=== PATIENT | male | born 1945 | race Caucasian/White ===

== ENCOUNTER 2019-01-06 15:17 | Inpatient (IN) | payer BC, MEDICARE ==
[~2019-01-06] VITALS: Ht 177.8 cm; Wt 84.8 kg
--- NOTE | 2019-01-06 15:35 | NUR ---
PT PRESENTS TO ED BIBA FROM [facility]. PER EMS PT WAS SCHEDULED TO GET DIALYSIS TODAY BUT PT BP WAS TOO LOW PRIOR TO STARTING DIALYSIS. EMS STS PT HAS BEEN C/O LETHARGY AND WEAKNESS. EMS STS PT GCS WAS 14 IN ROUTE TO HOSPITAL AND PT COULD NOT STATE WHAT YEAR IT WAS. EMS STS PT BP WAS IN 60'S SYSTOLIC AT [facility], AND WAS IN HIGH 80'S/LOW 90'S AFTER 500ML NS BOLUS. EMS STS PT BLOOD GLUCOSE WAS 87 IN ROUTE AND PT LAST DIALYSIS WAS ON . PT AAX04 UPON ARRIVAL, RESP E/U, ON FULL CM, WILL CONTINUE TO MONITOR.
--- NOTE | 2019-01-06 15:40 | NUR ---
PT ARRIVED TO ED WITH RT SIDED FEMORAL CENTRAL LINE, PEG TUBE IN MID ABDOMEN, DIALYSIS CATHETER TO RT SIDE OF CHEST, AND TRACHEOTOMY. PER TRACHEOTOMY WAS DONE 6 WEEKS AGO.
[2019-01-06 16:28] LABS: BASOPHIL % 0.5 % (0-2); PLATELET COUNT 273 x10^3mcL (130-400)
[2019-01-06 16:29] LABS: RED CELL DISTRIBUTION WIDTH 15.4 % (11.5-14.5)
[2019-01-06 16:51] LABS: ALKALINE PHOSPHATASE 106 U/L (46-116); ALT/SGPT 22 U/L (16-63); AST/SGOT 32 U/L (15-37); BILIRUBIN TOTAL 0.5 mg/dL (0.20-1.00); CALCIUM 8.5 mg/dL (8.5-10.1); CARBON DIOXIDE 26.5 mmol/L (21-32); CHLORIDE SERUM 98 mmol/L (98-107); GLUCOSE SERUM 106 mg/dL (74-106); POTASSIUM SERUM 3.5 mmol/L (3.5-5.1); SODIUM SERUM 135 mmol/L (136-145); TOTAL PROTEIN, SERUM 7.3 g/dL (6.4-8.2)
[2019-01-06 17:04] LABS: ALBUMIN 2.5 g/dL (3.4-5.0); CREATININE SERUM 4.7 mg/dL (0.7-1.3)
--- NOTE | 2019-01-06 17:22 | NUR ---
PER DR. FERRARI PT OK TO TAKE FOR CT SCAN. PT OFF FLOOR TAKEN FOR CT.
--- NOTE | 2019-01-06 18:00 | NUR ---
PT AT BEDSIDE
[2019-01-06] MEDS ORDERED: ASPIR 8181 MG PO (19:18)
[2019-01-06] MEDS ORDERED: LIPI10 PO (19:19)
[2019-01-06] MEDS ORDERED: LANSOPRAZOLE30 M2 PO (19:19)
[2019-01-06] MEDS ORDERED: LAXATIVE5 M1 PO (19:19)
[2019-01-06] MEDS ORDERED: MIDODRINE HCL10 MG PO (19:19)
[2019-01-06] MEDS ORDERED: DOCUSATE100 M1 PO (19:26)
[2019-01-06] MEDS ORDERED: AUTOJECT 21 EACH SQ (19:27)
[2019-01-06] MEDS ORDERED: COMINH (19:27)
[2019-01-06] MEDS ORDERED: ONDANSETRON4 M3 PO (19:27)
[2019-01-06] MEDS ORDERED: NEU300 PO (19:27)
--- NOTE | 2019-01-06 19:27 | NUR ---
REPORT GIVEN TO SARA GRAVES IN ICU TO ASSUME CARE OF PT.
[2019-01-06 19:40] LABS: MAGNESIUM 2.4 mg/dL (1.8-2.4); PHOSPHOROUS 3.6 mg/dL (2.5-4.9)
[2019-01-06 19:42] LABS: CHOLESTEROL/HDL RATIO 5.4
[2019-01-06 19:46] LABS: T3 TOTAL 0.73 ng/mL
[2019-01-06 19:47] LABS: FREE T4 1.27 ng/dL (0.76-1.46); FREE THYROXINE INDEX 1.9 ug/dL (1.4-4.5); T4(THYROXINE) 5.2 ug/dL (4.7-13.3)
[2019-01-06 20:59] VITALS: BP 95/58
--- NOTE | 2019-01-07 01:34 | NUR ---
LAB CALLED WITH CRITICAL TROPONIN OF 0.219
[2019-01-07 05:14] LABS: BASOPHIL % 0.6 % (0-2); PLATELET COUNT 188 x10^3mcL (130-400); RED CELL DISTRIBUTION WIDTH 15.8 % (11.5-14.5)
[2019-01-07 05:19] LABS: CALCIUM 7.8 mg/dL (8.5-10.1); CARBON DIOXIDE 23.4 mmol/L (21-32); CHLORIDE SERUM 105 mmol/L (98-107); GLUCOSE SERUM 82 mg/dL (74-106); MAGNESIUM 2.2 mg/dL (1.8-2.4); POTASSIUM SERUM 3.6 mmol/L (3.5-5.1); SODIUM SERUM 140 mmol/L (136-145)
[2019-01-07 05:24] LABS: CREATININE SERUM 4.7 mg/dL (0.7-1.3)
--- NOTE | 2019-01-07 07:04 | NUR ---
PT CARE AND REPORT TRANSFERRED TO TIMMY WITH ALL QUESTIONS AND CONCERNS ANSWERED
--- NOTE | 2019-01-07 07:25 | NUR ---
PATIENT IN BED, BED TO THE LOWEST POSITION. PATIENT IS ON 2 L NASAL CANNULA. PATIENT IS BREATHING ADEQUATELY AND THERE ARE NO SIGN OF RESPIRATORY DISTRESS. PATIENT HAS UPPER L SIDED MAGNENT NOTED FOR PACEMAKER. R SIDE ACCESS FOR DIALYSIS. PEG TUBE NOTED TO LUQ. R FEMORAL CENTRAL LINE, INTACT AND PATENT. LLE SURGICAL BKA. R HEEL AND TOE SCABS NOTED AND OPEN WOUND. BOOT APPLIED AND HEEL OFF LOADED WITH PILLOW. PATIENT STABLE AT THIS TIME, WILL CONTINUE TO MONITOR.
[2019-01-07 08:06] VITALS: BP 87/49
--- NOTE | 2019-01-07 09:50 | NUR ---
ECHOCARDIOGRAM PENDING-PACEMAKER BEING CHARGED
--- NOTE | 2019-01-07 11:08 | NUR ---
PATIENT STATES THAT HE IS UNCOMFORTABLE AT THIS TIME AND WOULD LIKE TO SIT UP IN BED. PATIENT ASSISTED TO SIT UP AND BED. PATIENT STABLE. WILL CONTINUE TO MONITOR.
[2019-01-07 11:09] VITALS: BP 84/52
--- NOTE | 2019-01-07 12:03 | NUR ---
DR. BAILEY IN UNIT AND MADE AWARE PT'S MAP MAINTAINING BELOW 60. VERBAL ORDER RECIEVED FOR NS BOLUS 500 ML X 1. ORDERS REPEATED AND CONFIRMED. PRIMARY RN MADE AWARE.
--- NOTE | 2019-01-07 13:14 | NUR ---
DR. JAMES INFORMED OF PATIENTS BLOOD PRESSURE TRENDING DOWN, AND CURRENTLY 82/37 WITH A MAP OF 56. PER DR. JAMES, HE WILL NOTIFY DR. BAILEY AT THIS TIME TO SEE WHAT HE WANTS TO DO. NO NEW ORDERS AT THIS TIME. WILL AWAIT CALL BACK.
--- NOTE | 2019-01-07 13:37 | NUR ---
SECOND NS 500 ML BOLUS INITIATED AT THIS TIME. NIBP 79/46 MAP 56. WILL CONT TO MONITOR.
[2019-01-07 15:24] VITALS: BP 90/57
--- NOTE | 2019-01-07 18:05 | NUR ---
PATIENT ASSISTED UP IN BED, UPON REQUEST. PATIENT STABLE, AND STATES NO PAIN. NO DISTRESS NOTED. BED TO THE LOWEST POSITION. WILL CONTINUE TO MONITOR.
--- NOTE | 2019-01-07 19:13 | NUR ---
REPORT GIVEN TO SARA BETANCUR ALL QUESTIONS ANSWERED.
[2019-01-07 19:30] VITALS: BP 90/48
--- NOTE | 2019-01-07 19:30 | NUR ---
REC'D REPORT FROM TIMMY RUIZ TO ASSUME CARE. PT A/O X4, SLOW TO RESPOND. SPEECH CLEAR AND APPROPRIATE. PERRLA NOTED. EENT FREE OF DISCHARGE. RESPS E/U ON O2 2LPM VIA NC. CHEST RISE EQUAL AND SYMMETRICAL. LUNG SOUNDS DIMINISHED. ROLL FORMING MACHINE OPERATOR IN PLACE SHOWING ST. BP 90/48 MAP 63, HR 100. CHEST WALL STABLE. DENIES ANY CP, SYNCOPE, OR DIZZINESS. PACEMAKER TO L UPPER CHEST WITH MAGNET IN PLACE FROM ED. PULSES PALPABLE BUT WEAK. CAP REFILL < 3 SECS. RLE PITTING 1+ PITTING EDEMA R FEMORAL CENTRAL LINE INTACT AND PATENT, DSG CDI. ABD ROUND, SOFT, NONTENDER TO TOUCH. BOWEL SOUNDS ACTIVE. DENIES ANY N/V, PT WITH EPISODE OF SMALL AMT OF LOOSE STOOL. RENAL DIET DURING DAY. WILL INITIATE TF PER MD ORDER. PT ANURIC ON HD. R UPPER CHEST SUSAN CATH INTACT AND SECURED, DSG CDI. PULSES PALPABLE BUT WEAK. CAP REFILL < 3 SECS. RLE PITTING 1+ PITTING EDEMA R FEMORAL CENTRAL LINE INTACT AND PATENT, DSG CDI. GEN WEAKNESS. TURNED AND REPOSITIONED Q2H FOR PRESSURE RELIEF. ISOGEL MATTRESS IN PLACE. HEEL PROTECTOR TO RLE IN PLACE. INSTRUCTED TO CALL FOR ANY ASSISTANCE. WILL CONTINUE TO MONITOR.
--- NOTE | 2019-01-07 20:00 | NUR ---
TF NEPRO INITIATED AT 10ML/HR.
--- NOTE | 2019-01-07 20:30 | NUR ---
SMALL AMT OF LOOSE STOOL NOTED. FULL BED BATH PROVIDED AT THIS TIME WITH CHG WIPES. ALL LINENS CHANGED. PT REPOSITIONED TO COMFORT.
--- NOTE | 2019-01-07 22:00 | NUR ---
HEATING PLACED ON RLE.
[2019-01-07 23:16] VITALS: BP 89/54
--- NOTE | 2019-01-07 23:22 | NUR ---
PT WITH C/O SEVERE PAIN TO RLE. PT STS NORCO DOES NOT HELP I WANT SOMETHING STRONGER. DR BLACKBURN MADE AWARE, ORDER GIVEN FOR HEATING PAD.
--- NOTE | 2019-01-08 00:43 | NUR ---
DR FERRERA AT BEDSIDE, UPDATED ON STATUS, VERBAL ORDER GIVEN FOR ROCEPHIN IV DAILY TO TREAT PNA. ORDER NOTED AND CARRIED OUT.
--- NOTE | 2019-01-08 00:45 | NUR ---
TF INCREASED TO 20ML/HR, GRV=5ML REPLACED.
[2019-01-08 03:42] VITALS: BP 90/52
[2019-01-08 03:53] LABS: BASOPHIL % 0.8 % (0-2); PLATELET COUNT 252 x10^3mcL (130-400)
[2019-01-08 03:54] LABS: RED CELL DISTRIBUTION WIDTH 15.8 % (11.5-14.5)
--- NOTE | 2019-01-08 04:00 | NUR ---
TF INCREASED TO 30ML/HR.
[2019-01-08 04:12] LABS: CALCIUM 7.9 mg/dL (8.5-10.1); CARBON DIOXIDE 23.5 mmol/L (21-32); CHLORIDE SERUM 104 mmol/L (98-107); GLUCOSE SERUM 97 mg/dL (74-106); MAGNESIUM 2.1 mg/dL (1.8-2.4); PHOSPHOROUS 4.9 mg/dL (2.5-4.9); POTASSIUM SERUM 3.5 mmol/L (3.5-5.1); SODIUM SERUM 138 mmol/L (136-145)
[2019-01-08 04:13] LABS: CREATININE SERUM 5.4 mg/dL (0.7-1.3)
--- NOTE | 2019-01-08 05:55 | NUR ---
DR VELÁZQUEZ AT BEDSIDE, UPDATED ON STATUS, MADE AWARE REGARDING R FEMORAL CVC 1 MONTH OLD AND R CHEST SUSAN CATH 2 MONTHS OLD. NO FURTHER ORDERS GIVEN AT THIS TIME.
--- NOTE | 2019-01-08 06:12 | NUR ---
PT PLACED ON ROOM AIR, O2 SAT 97%, PT TOLERATING WELL. DR VELÁZQUEZ MADE AWARE.
--- NOTE | 2019-01-08 06:15 | NUR ---
PTS BP 85/50 MAP 62, DR VELÁZQUEZ MADE AWARE, VERBAL ORDER GIVEN TO BOLUS NS 250ML.
--- NOTE | 2019-01-08 06:54 | NUR ---
XRAY AT BEDSIDE
[2019-01-08 07:30] VITALS: BP 93/52
--- NOTE | 2019-01-08 07:30 | NUR ---
PATIENT AWAKE AND ORIENTED TO PERSON, PLACE AND TIME. PATIENT DENIES SHORTNESS OF BREATH, NAUSEA/VOMITING AT THIS TIME. PATIENT STATES HAVING SOME THROBBING TO RIGHT FOOT 2/10 AND TOLERABLE AT THIS TIME. HEATING PAD IN PLACE TO RIGHT FOOT. WILL MEDICATE FOR PAIN PRN. TELE # 4 READS PACED AT THIS TIME. PACEMAKER TO LEFT UPPER CHEST; MAGNET ATTACHED TO THE LEFT UPPER CHEST. SUSAN CATH TO RIGHT UPPER CHEST WITH DRESSING IN PLACE. PEG TUBE TO UPPER ABDOMEN; THE SITE NOTED WITH SCANT AMOUNT OF CLEAR DISCHARGE; DRESSING IN PLACE. PEG TUBE TO TUBE FEEDING WITH NEPRO AT 30ML/HR. AND FREE WATER FLUSH 100ML/Q4HR. 5ML OF RESIDUAL NOTED AND REPLACED. CVC TO RIGHT FEMORAL WITH DRESSING INTACT. RIGHT HEEL WITH HEEL PROTECTOR IN PLACE. CALL LIGHT WITHIN REACH. SIDE RAILS UP X3. ISOGEL MATTRESS IN USE.
--- NOTE | 2019-01-08 08:00 | NUR ---
TUBE FEEDING RATE INCREASED FROM 30ML/HR TO 40ML/HR TO REACH THE GOAL ORDERED.
--- NOTE | 2019-01-08 09:46 | NUR ---
DR BAILEY AT RESIDENTS ON UNIT FOR ROUNDS. POC DISCUSSED.
--- NOTE | 2019-01-08 09:48 | NUR ---
DR. VELÁZQUEZ IS AT BEDSIDE AND INFORMED THAT THE PEG TUBE SITE HAS SCANT AMOUNT OF CLEAR DISCHARGE. NO FURTHER ORDER RECEIVED AT THIS TIME.
--- NOTE | 2019-01-08 11:11 | NUR ---
AN IV SITE INSERTED TO RIGHT HAND WITH #22G FOR IV ACCESS. THE CVC AT RIGHT FEMORAL REMOVED. NO BLEEDING NOTED AT THE SITE. DRESSING APPLIED TO THE SITE. THE CVC TIP WAS COLLECTED AND SENT TO THE LAB FOR CULTURE. ALSO, NEW DRESSING APPLIED TO PEG TUBE SITE.
[2019-01-08 11:30] VITALS: BP 84/46
--- NOTE | 2019-01-08 11:35 | NUR ---
DR. RIOJAS IN TO SEE THE PATIENT. UPDATE PROVIDED TO THE DOCTOR.
--- NOTE | 2019-01-08 11:50 | NUR ---
DR. CORONADO IS AT BEDSIDE DISCUSSING THE PLAN OF CARE WITH THE PATIENT AND HIS . CONCERNS ARE ADDRESSED.
--- NOTE | 2019-01-08 12:00 | NUR ---
DR CORONADO AT BEDSIDE TO ASSESS PT. UPDATES PROVIDED. PT DISCUSSED POC WITH PT, , AND RESIDENT. PLAN TO HOLD OFF ON HD TODAY AND REEVALUATE TOMORROW.
--- NOTE | 2019-01-08 13:06 | NUR ---
DR. CARDOZA IS AT BEDSIDE ASSESSING THE PATIENT AND TALKING TO PATIENT'S .
--- NOTE | 2019-01-08 13:17 | NUR ---
DR. CARDOZA REMOVED THE MAGNET AT LEFT UPPER CHEST. ALSO, DOCTOR IS AWARE OF THE PATIENT BP 82/47 WITH MAP 58.
--- NOTE | 2019-01-08 13:38 | NUR ---
REP FROM [facility] REQUESTED FOR PACEMAKER ADJUSTMENT BY DR CARDOZA. ETA 1 HOUR.
--- NOTE | 2019-01-08 14:56 | NUR ---
REP FOR PACEMAKER ADJUSTED SETTINGS PER DR CARDOZA: PVARP ADJUSTED FROM 300 MS TO 350 MS. DOCUMENTATION IN CHART.
[2019-01-08 15:15] VITALS: BP 83/47
--- NOTE | 2019-01-08 16:13 | NUR ---
SPEECH THERAPIST AT BEDSIDE FOR SWALLOW EVAL.
--- NOTE | 2019-01-08 16:37 | NUR ---
BS. CHECKED 83; PATIENT REFUSED LUNCH. TUBE FEEDING RESUME WITH NEPRO AT 40ML/HR AND FREE WATER FLUSH 100ML/Q4HR.
--- NOTE | 2019-01-08 16:52 | NUR ---
PT WAS SEEN FOR DYSPHAGIA. PT WAS ABLE TOS AFELY SWALLOW MS DIET WITH CHOPPED MEAT WITH THIN LIQUID WITHOUT S/S OF ASPIRATION RECOMMENDATION MS DIET WITH CHOPPED MEAT AND VEG WITH THIN LIQUID SMALL BITES AND SIPS ONLY SUPERVISION DURING MEAL TIME.
--- NOTE | 2019-01-08 18:34 | NUR ---
DR. BLACKBURN CALLED IN FOR UPDATE; DOCTOR WAS INFORMED THAT THE PATIENT DID NOT WANT TO EAT TODAY, SO PEG TUBE FEEDING WITH NEPRO RESUMED AT 40ML/HR AND FREE WATER FLUSH AT 100ML/Q4HR PREVIOUS TUBE FEEDING ORDER. NO FURTHER INSTRUCTION RECEIVED AT THIS TIME. ALSO, DR. BLACKBURN WAS NOTIFIED THAT MECHANICAL CHOPPED DIET WAS RECOMMENDED BY SPEECH THERAPIST AFTER SWALLOW EVAL DONE.
--- NOTE | 2019-01-08 18:41 | NUR ---
THE PATIENT HAS BEEN SLEEPING SINCE NOON; PATIENT AROUSABLE WITH VERBAL STIMULI. CONTACT ISOLATION MAINTAINED THROUGHOUT THE SHIFT DUE TO HX OF C-DIFF. PATIENT HAS NOT HAD BM TODAY YET. RLE ELEVATED ON A PILLOW. HEEL PROTECTOR AND K-PAD REMAIN IN PLACE TO RIGHT HEEL.
--- NOTE | 2019-01-08 19:05 | NUR ---
RECEIVED REPORT FROM MARIO RUIZ. WILL RESUME CARE.
[2019-01-08 19:20] VITALS: BP 86/52
--- NOTE | 2019-01-08 20:04 | NUR ---
Phlembotomist here at the bedside at this time. Pt refused to have blood cultures drawn, offered x3. I tried to convince patient to have his lab drawn but still refused. Risk and benefits explained at this time but still refused. Pt agreed to have blood cultures drawn with morning labs. made aware and new order obtained for blood culture in the morning noted and carried. Pt made aware. Will continue to monitor.
--- NOTE | 2019-01-08 20:41 | NUR ---
PT REFUSED HEPARIN 5,000U SQ INJ. RISK AND BENEFITS EXPLAINED X 3. PT REFUSED X3.
[2019-01-08 23:00] VITALS: BP 94/58
--- NOTE | 2019-01-08 23:16 | NUR ---
DR. FERRERA AT BEDSIDE ASSESSING PT. UPDATES PROVIDED. NO NEW ORDERS AT THIS TIME.
--- NOTE | 2019-01-09 00:05 | NUR ---
PT HAD MODERATE AMOUNT OF SOFT LIGHT BROWN BM. STOOL SAMPLE TAKEN AND SENT TO LAB.
--- NOTE | 2019-01-09 02:29 | NUR ---
PT C/O NAUSEA. GIVEN ZOFRAN 4MG IVP. WILL REASSESS FOR RELIEF.
--- NOTE | 2019-01-09 02:41 | NUR ---
RECEIVED PT AAOX3. ON RA. LUNG SOUNDS DIMINISHED BILATERALLY. BREATHING E/U. S1S2 AUSCULTATED WITH NO MURMURS NOTED. PACED ON CALL CENTER OPERATIONS MANAGER. PT HAS UPPER L CHEST PACEMAKER. PT STATES NO PAIN AT THIS TIME. PULSES PALPABLE. NO EDEMA NOTED. RH 22G WNL, DRESSING CDI. PEG TUBE FEEDING OF NEPRO 1.8 AT 40CC/HR, FWF 100CC Q4HR. PLACEMENT CHECKED WITH 10CC OF RESIDUAL NOTED, REPLACED. ABDOMEN ROUND, NONTENDER. BS ACTIVE X 4. NO N/V. ANURIC, HD PT. R CHEST SUSAN CATH. REDNESS AND SOME EXCORIATION TO COCCYX, OPTIFOAM IN PLACE CDI. R HEEL ULCER WITH DRESSING CDI. BOLSTER BOOT FOR R FOOT. L BELOW THE KNEE AMPUTATED LEG. BED IN LOW POSITION. CALL LIGHT WITHIN REACH. WILL CONTINUE TO MONITOR.
[2019-01-09 03:15] VITALS: BP 89/52
--- NOTE | 2019-01-09 05:10 | NUR ---
CUT OFF SAWYER SHING[place] MILL AT BEDSIDE FOR BLOOD DRAW.
[2019-01-09 05:31] LABS: BASOPHIL % 0.6 % (0-2); PLATELET COUNT 292 x10^3mcL (130-400)
--- NOTE | 2019-01-09 05:36 | NUR ---
DR. VELÁZQUEZ AT BEDSIDE ASSESSING PT. UPDATES PROVIDED.
[2019-01-09 05:42] LABS: CALCIUM 8.2 mg/dL (8.5-10.1); CARBON DIOXIDE 19.9 mmol/L (21-32); CHLORIDE SERUM 100 mmol/L (98-107); GLUCOSE SERUM 131 mg/dL (74-106); MAGNESIUM 2.1 mg/dL (1.8-2.4); PHOSPHOROUS 4.6 mg/dL (2.5-4.9); POTASSIUM SERUM 3.7 mmol/L (3.5-5.1); SODIUM SERUM 135 mmol/L (136-145)
[2019-01-09 05:43] LABS: RED CELL DISTRIBUTION WIDTH 15.8 % (11.5-14.5)
--- NOTE | 2019-01-09 06:10 | NUR ---
CHEST XRAY BEING DONE AT BEDSIDE.
--- NOTE | 2019-01-09 07:11 | NUR ---
GAVE REPORT TO MARIO RUIZ. ALL QUESTIONS AND CONCERNS ADDRESSED.
[2019-01-09 07:20] VITALS: BP 91/53
--- NOTE | 2019-01-09 07:20 | NUR ---
PATIENT IS DROWSY BUT AROUSABLE WITH VERBAL STIMULI AND ORIENTED TO PERSON, PLACE AND TIME. PATIENT HAS SLOW SPEECH BUT ABLE TO MAKE NEEDS KNOWN. PATIENT DENIES SHORTNESS OF BREATH OR NAUSEA/VOMITING. PATIENT STILL HAS THROBBING PAIN 5/10 TO RIGHT FOOT: NORCO MEDICATED TO THE PATIENT AT 0623 AM AND K-PAD IS IN PLACE. RIGHT HEEL WITH DRESSING AND HEEL PROTECTOR IN PLACE. RLE ELEVATED ON A PILLOW. IV SITE TO RIGHT HAND PATENT; UPPER ABDOMEN WITH PEG TUBE IN PLACE AND CONNECTED TO TUBE FEEDING OF NEPRO AT 50ML/HR AND FREE WATER FLUSH AT 100ML/Q4HR. TELE # 4 READS PACED; PACEMAKER TO LEFT UPPER CHEST. RIGHT CHEST WITH SUSAN CATH: DRESSING CLEAN, DRY AND INTACT. NEW OPTIFOAM TO SACRAL-BUTTOCK AREAS. CALL LIGHT WITHIN REACH. SIDE RAILS UP X3. BED IS AT LOWEST POSITION AND ISOGEL MATTRESS IN USE. ALARM IS ON.
--- NOTE | 2019-01-09 08:14 | NUR ---
HEMODIALYSIS NURSE COMES TO BEDSIDE FOR HD; LAB, ORDER AND 2 BAG OF 1000ML NS PROVIDED TO THE HD NURSE.
--- NOTE | 2019-01-09 08:30 | NUR ---
AT 0730; TUBE FEEDING WAS HELD SO THAT THE PATIENT WILL EAT FOOD DURING THE DAY TIME. HOWEVER PATIENT REFUSED BREAKFAST AT 0830. TUBE FEEDING RESUMED AT 0830 TO MAINTAIN SUGAR LEVEL FOR THE PATIENT.
--- NOTE | 2019-01-09 09:33 | NUR ---
DR. QUILES AND THE TEAM ARE MAKING ROUND TO SEE THE PATIENT. DR. VELÁZQUEZ WAS INFORMED THAT THE TUBE FEEDING WAS HELD AT 0730 FOR BREAKFAST, BUT THE PATIENT REFUSED BREAKFAST SO TUBE FEEDING RESUMED AT 0830 TO PREVENT HYPOGLYCEMIA. NO FURTHER INSTRUCTION RECEIVED AT THIS TIME.
--- NOTE | 2019-01-09 11:15 | NUR ---
[facility] WOUND CARE CONSULT, PT. IS AT DIALYSIS AT THIS TIME, WILL COME VISIT AGAIN.
[2019-01-09 11:19] VITALS: BP 96/53
--- NOTE | 2019-01-09 11:35 | NUR ---
HEMODIALYSIS COMPLETED WITH 1L OUTPUT REPORTED FROM [facility] NURSE.
--- NOTE | 2019-01-09 13:20 | NUR ---
NOTE FROM 1255 TO 1320: AT 1255: DR. VELÁZQUEZ WAS CALLED AND NOTIFIED THAT THE PATIENT JUST HAD LARGE BM WITH BRIGHT RED WATERY STOOL. AFTER THAT, PATIENT WAS CLEANSED, GIVEN A BED BATH; ALL GOWN AND LINEN CHANGED. NEW OPTIFOAM APPLIED TO BUTTOCK AREAS.
--- NOTE | 2019-01-09 14:05 | NUR ---
THE PATIENT HAD MORE BM WITH RED AND WATERY STOOL. THE PATIENT WAS CLEANSED AND CHANGED AGAIN. DR. VELÁZQUEZ WAS AT STATION AND MADE AWARE.
--- NOTE | 2019-01-09 14:28 | NUR ---
PHYSICAL THERAPY NOTE ATTEMPTED FOR PHYSICAL THERAPY EVAL ORDER, NSG INDICATED THAT PATIENT UNDERWENT DIALYSIS AND ALSO GI BLEED AT THIS TIME. EVAL ON HOLD.
--- NOTE | 2019-01-09 15:05 | NUR ---
DR. RIOJAS IS AT BEDSIDE EXAMING THE PATIENT. UPDATE WAS PROVIDED TO THE DOCTOR.
[2019-01-09 15:20] VITALS: BP 103/55
--- NOTE | 2019-01-09 16:10 | NUR ---
BS. CHECKED 151; DR. VELÁZQUEZ IS AT BEDSIDE AND IS AWARE OF THE BS 151. NO INSULIN COVERAGE NEEDED THIS TIME PER DR. VELÁZQUEZ.
[2019-01-09 16:19] LABS: BASOPHIL % 0.2 % (0-2); PLATELET COUNT 208 x10^3mcL (130-400); RED CELL DISTRIBUTION WIDTH 15.7 % (11.5-14.5)
--- NOTE | 2019-01-09 18:18 | NUR ---
DR. HER IS AT BEDSIDE SEEING THE PATIENT.
--- NOTE | 2019-01-09 19:10 | NUR ---
REPORT GIVEN TO VITO WHITLEY RN. CONCERNS ADDRESSED.
--- NOTE | 2019-01-09 19:30 | NUR ---
RECEIVED REPORT FROM SARA MARTIN. PT IS ALERT AND ORIENTED X3. EYES REACTIVE TO LIGHT. PATIENT DOES FOLLOW MOST COMMANDS. PT IS BREATHING E/U ON RA. LUNG SOUNDS DIMINISHED TO BILATERAL UPPER LOBES AND LOWER LOBES. S1 S2 HEART SOUNDS AUSCULTATED. PERIPHERAL IV TO LEFT HAND PATENT, DRESSING CDI. CAP REFILL <3 SECS X4. PULSES MODERATE X2 BUE, WEAK X1 BLE. ABD IS SOFT AND ROUNDED WITH ACTIVE BOWEL SOUNDS X4Q. PEG TUBE IN PLACE, PATENT AND INTACT. NEPRO INFUSING AT 50 ML/HR, RESIDUAL OF 10 ML. REDNESS TO SACRUM, OPTIFOAM IN PLACE. RLE ULCERATION WITH DRESSING CDI. BROWN DISCOLORATION TO 1,2,5 DIGITS OF RLE. LLE BELOW THE KNEE AMPUTATION. PT EXPERIENCING PHANTOM PAIN. WILL CONTINUE TO MONITOR.
--- NOTE | 2019-01-09 20:30 | NUR ---
PT MEDICATED WITH NORCO FOR PHANTOM LIMB, AND RLE PAIN.
[2019-01-09 22:22] LABS: BASOPHIL % 0.2 % (0-2); PLATELET COUNT 215 x10^3mcL (130-400)
[2019-01-09 22:23] LABS: RED CELL DISTRIBUTION WIDTH 15.9 % (11.5-14.5)
--- NOTE | 2019-01-10 00:04 | NUR ---
TUBE FEEDING STOPPED AT THIS TIME FOR PROCEDURE TOMORROW.
--- NOTE | 2019-01-10 00:19 | NUR ---
DR. FERRERA AT BEDSIDE FOR UPDATES. ALL QUESTIONS AND CONCERNS ANSWERED. ORDERED PO VANCOMYCIN IN ADDITION TO IV VERSION.
--- NOTE | 2019-01-10 02:48 | NUR ---
PT HAD LARGE BM, BRIGHT RED WITH LARGE CLOTS. CULTURE COLLECTED AND SENT TO LAB. PT TAUGHT ONCE AGAIN HOW TO USE CALL LIGHT, PT STATED "HE NEEDED ME A HALF HOUR AGO". PT VERBALIZED UNDERSTANDING.
[2019-01-10 05:13] LABS: BASOPHIL % 0.3 % (0-2); PLATELET COUNT 224 x10^3mcL (130-400)
[2019-01-10 05:16] LABS: RED CELL DISTRIBUTION WIDTH 15.8 % (11.5-14.5)
--- NOTE | 2019-01-10 05:20 | NUR ---
PER DR VELÁZQUEZ, WILL CANCEL ABG. GIORGI PRESENT
[2019-01-10 05:26] LABS: CALCIUM 7.6 mg/dL (8.5-10.1); CARBON DIOXIDE 27.3 mmol/L (21-32); CHLORIDE SERUM 104 mmol/L (98-107); GLUCOSE SERUM 117 mg/dL (74-106); MAGNESIUM 1.8 mg/dL (1.8-2.4); PHOSPHOROUS 2.4 mg/dL (2.5-4.9); POTASSIUM SERUM 3.6 mmol/L (3.5-5.1); SODIUM SERUM 140 mmol/L (136-145)
[2019-01-10 05:34] LABS: CREATININE SERUM 4.4 mg/dL (0.7-1.3)
--- NOTE | 2019-01-10 06:00 | NUR ---
DR. VELÁZQUEZ AT BEDSIDE FOR UPDATES. ALL QUESTIONS AND CONCERNS ANSWERED.
--- NOTE | 2019-01-10 06:00 | NUR ---
ATTEMPTED TO CALL PATIENT'S SIGNIFICANT OTHER IN ORDER TO GET SIGNATURES FOR CONSENT FOR EGD AND COLONOSCOPY. PT UNABLE TO HOLD PEN TO SIGN FOR HIMSELF. WILL TRY AGAIN.
--- NOTE | 2019-01-10 06:30 | NUR ---
ADAIR, PT'S SIGNIFICANT OTHER RETURNED MY PHONE CALL. ADAIR PROVIDED ME WITH TELEPHONE CONSENT TO "ANYTHING HE NEEDS". ADAIR MADE AWARE THAT I NEEDED CONSENT FOR EGD, COLONOSCOPY, ANESTHESIA, AND BLOOD TRANSFUSION. CONSENTS SIGNED BY MYSELF, AND BY SARA ALFARO.
--- NOTE | 2019-01-10 07:30 | NUR ---
STARTED PERIPHERAL IV TO RIGHT AC 20 G FOR BLOOD TRANSFUSION. PATENT, DRESSING CDI.
--- NOTE | 2019-01-10 07:40 | NUR ---
PT RESTING IN BED WITH NO APPARENT SIGNS OF DISTRESS. PT A/A/O/X4, SPEECH CLEAR AND APPROPRIATE AT THIS TIME. PT DENIES ARELLANO/DIZZINESS. RESPIRATIONS EQUAL AND UNLABORED. LUNGS DIM IN BASES. PT DENIES RESP DISTRESS AT THIS TIME. PT PACED ON MONITOR. PT DENIES CP. WEAK PALP PULSES NOTED. EDEMA NOTED TO RLE. SKIN WARM TO TOUCH. RIGHT SUSAN INTACT, DRESSING CDI. PT NPO AT THIS TIME. PEG INTACT. LHAND IV PATENT AND INTACT. ABDOMEN SOFT AND ROUND. ACTIVE BS. PT DENIES N/V. PT ANURIC. HD PATIENT. PT REPORTS SLIGHT DISCOMFORT TO RLE, RC'D MEDICATION ACCORDINGLY. BED IN LOW POSITION. CALL LIGHT IN REACH. WILL CONT TO MONITOR
[2019-01-10 07:50] VITALS: BP 82/41
--- NOTE | 2019-01-10 07:50 | NUR ---
ALL CARE ENDORSED TO SARA WILLOUGHBY. ALL QUESTIONS AND CONCERNS ANSWERED.
--- NOTE | 2019-01-10 08:07 | NUR ---
MAINTENANCE REPAIRER AT BEDSIDE TO ATTEMPT TO DRAW BLOOD FOR TYPE AND SCREEN PT HAS 2 UNITS PRBC PENDING TO INFUSE. PT REPEATEDLY REFUSE BLOOD DRAW AT THIS TIME DESPITE REPEATED EDUCATION AND INFORMED OF THE POSSIBILITY OF BLEEDING AND . PT CONTINUES TO REFUSE STATING "NO, YOU AREN'T GOING TO TOUCH MY BLOOD" WHEN ASKED IF HE UNDERSTOOD THE POSSIBLITY OF BLEEDING AND PT STATED "YES" WHEN ASKED IF HE WANTED TO SPEAK WITH HIS ABOUT IT PT STATED "NO". WILL INFORM COVERING RESIDENT.
--- NOTE | 2019-01-10 08:10 | NUR ---
RC'D CALL FROM ADAMS RUIZ THAT COLONSCOPY CANCELLED AT THIS TIME PER DR HER. PT AWAITING FOR EGD AT THIS TIME.
--- NOTE | 2019-01-10 08:14 | NUR ---
DR. VELÁZQUEZ MADE AWARE PT REFUSING BLOOD DRAW AT THIS TIME DESPITE REPEATED EDUCATION. NO FURTHER ORDERS AT THIS TIME. PRIMARY RN MADE AWARE RESIDENT INFORMED. WILL CONT TO MONITOR.
--- NOTE | 2019-01-10 08:16 | NUR ---
IOANA GROUP CHIEF OPERATOR PRESENT AT BEDSIDE AT THIS TIME
--- NOTE | 2019-01-10 08:29 | NUR ---
DRESSING TO RLE CHANGED AT THIS TIME. OPTIFOAM IN PLACE TO SACRUM WITH ZGAURD IN PLACE. PT REPOSITIONED AT THIS TIME. BED IN LOWEST POSITION. WILL CONT TO MONITOR
--- NOTE | 2019-01-10 08:44 | NUR ---
CALLED LAB REGARDING DR EDGE SAYED ORDER FOR ADDING TYPE AND SCREEN FROM MORNING LABS SINCE PT REFUSED TYPE AND SCREEN. PER LAB UNABLE TO D/T DIFFERENT TUBE COLLECTION. WILL NOTIFY DR EDGE SAYED AT THIS TIME
--- NOTE | 2019-01-10 08:53 | NUR ---
ADAMS RN PRESENT AT BEDSIDE. PT VERBALIZED AGREEMENT TO HAVE EGD PROCEDURE DONE BUT CONTINUED TO REFUSE BLOOD TRANSFUSION AND TYPE AND SCREEN. PT EDUCATED ON IMPORTANCE OF BLOOD TRANSFUSION. PT VERBALIZED UNDERSTANDING AND CONTINUE TO REFUSE BLOOD TRANSFUSION. RN ADAMS UPDATED ON PTS CURRENT VITALS AND LOW BP. ADAMS TO NOTIFY DR HER OF PPT CURRENT VITALS
--- NOTE | 2019-01-10 09:06 | NUR ---
WOUND CARE EVALUATION NOTE: REASON FOR EVALUATION: MULTIPLE WOUNDS SKIN ASSESSMENT DONE WITH THIS 73 Y/O MALE PT. ADMITTED TO [facility] WITH INITIAL DX OF AMS. PAST MEDICAL HX INCLUDES DM, CAD, ESRD WITH HD, LEFT BKA, RLE PAD WITH 3 STENTS. PT. ADMITTED WITH MULTIPLE PRESSURE ULCERS. ALL ABOVE INFORMATION OBTAINED FROM ADMISSION H&P. PT IS AWAKE AND ABLE TO FOLLOW DIRECTIONS SKIN WARM AND DRY, MULTIPLE HEALED SCARS TO TRUNK AND BLE.BLE NO HAIR. RIGHT FOOT DORSAL PEDAL PULSES DIMINISHED. PLAN OF CARE DISCUSSED WITH PT, CN AND PRIMARY RN. COMORBIDITIES RELATED TO FURTHER SKIN BREAKS AND UNAVOIDABLE PRESSURE INJURY: INFECTION, HYPOTENTION, ESRD WITH HD, LOW ALBUMIN LEVEL AND HOB ELEVATED THE MAJORY OF TIMES DUE TO MEDICAL REASONS. INTEGUMENTARY: -LEFT BKA HEALED SCARS -UNSTABEABLE PRESSURE ULCER TO RIGHT HEEL TOWARD ARCHILLE BONE 2X2CM BROWN SOFT SCAB WITH LOOSE WOUND EDGE AND SMALL AMOUNT PURULENT DRAINAGE, MILD ODOR, WITH SURROUNDING REDNESS TISSURE INDICATED FURTHER DAMAGE. -INCONTINENT ASSOCIATED DERMATITIS TO RIGHT BUTTOCK, 3X3CM SKIN PALE PINK IN COLOR, SURROUNDING TISSUE PINK -SACRALCOCCYX BLANCHABLE COLOR, SKIN DRY AND INTACT -XEROSIS TO RIGHT DORSAL FOOT -PAD TO RIGHT HALLUX (2X3CM), 2ND DIGIT TOE (1X1CM) AND 3RD DIGIT TOE (0.5X0.5CM) BROWN SCABS RECOMMENDATIONS: -TOBACCO CLASSER CONSULT -X-RAY /BONE SCAN TO R/O OSTEOMYLITIS -PAINT WITH BETADINE SOLUTION TO RIGHT HALLUX, 2ND DIGIT TOE AND 3RD DIGIT TOE BROWN SCABS BID AND LEAVE IT OPEN TO AIR -APPLY HYDRAGUARD TO UPPER AND LOWER EXTREMITIES/ RIGHT DORSAL FOOT BID AND LEAVE IT OPEN TO AIR -APPLY Z GUARD TO BUTTOCKS QD AND PRN IF SOILING -CLEANSE SACRALCOCCYX WITH NS. PAT. DRY APPLY OPTIFOAM Q3 DAYS AND PRN IF SOILING MAINTANENCE -APPLY HEEL RAISER TO RIGHT FOOT WHEN IN BED -OFFLOAD BILATERAL HEELS BY PLACING PILLOWS UNDER CALVES UNLESS OTHERWISE CONTRAINDICATED -PRESSURE REDISTRIBUTION SURFACE THERAPY -TURN AND REPOSITION Q2H, OFFLOAD RIGHT EAR AND SACRALCOCCYX -CONTINUE TO FOLLOW RD RECOMMENDATIONS ALL ABOVE RECOMMENDATIONS DISCUSSED WITH PRIMARY RN WILL FOLLOW UP PT Q7-10 DAYS. PLEASE CONTACT
[2019-01-10 09:22] VITALS: Ht 177.8 cm; Wt 84.8 kg
--- NOTE | 2019-01-10 09:46 | NUR ---
DR. QUILES, [employer], [employer]CH[employer]ICIAN AND PRIMARY RN AT BEDSIDE FOR MORNING ROUNDS. PT PREPARING FOR EGD AT BEDSIDE. DR. VELÁZQUEZ INFORMED THAT PER BASKET TURNER PODIATRY AND BONE SCAN OF RIGHT HEEL NEEDED. WILL CONT TO MONITOR.
--- NOTE | 2019-01-10 10:57 | NUR ---
DR CARDOZA UPDATED ON PT CURRENT STATUS. DR CARDOZA TO BEDSIDE TO SPEAK TO AND PT REGARDING CURRENT POC
--- NOTE | 2019-01-10 11:28 | NUR ---
LEVOPHED DRIP INITIATED AT THIS TIME PER MD ORDER. WILL MONITOR VITALS CLOSELY
--- NOTE | 2019-01-10 11:39 | NUR ---
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), percutaneous stent placement in Rt lower limb in 3 vessels for PAD 3 months ago Labs: BG 117H, BUN 36H, CREAT 4.4H, WBC 11.3H Meds: Colace, D 50%, dulcolax, flagyl, humulin, Lipitor, norco, rocephin, vancomycin, zofran Diet: NPO (procedure) PO Intake: NPO Ht: 177.8 cm (70") Wt: 84.8 kg (186#) BMI: 26.8 kg/m2 Bed scale: 84.8 kg IBW: 166# (75 kg) %IBW: 112 UBW: 186-190# Age: 73/M Food Allergies: NKFA Skin: redness in buttocks, scabbing to BUE, ulcer to RLE, LLQ BKA healed Ankit: 12 Edema: none GI: bright red stool Last BM: 01/10 Trigger: admitted w/ risk diagnosis Per H&P, Pt is a 73 year old Male Pt with PMH of DM and ESRD HD TTS, CAD s/p CABG triple vessel 6 years ago, Lt Leg BKA 1 1/2 years ago, Unspecified Arrhythmia s/p Pacemaker placement 4 months ago, PAD s/p Percutaneous stent placement in 3 vessels in Rt lower limb 3 months ago, came with cc of Altered Mental Status and Hypotension from HD center in [place]. RDN Visit (01/10): Patient was not alert, spoke with patient's . Per , pt was on nocturnal feedings and regular diet during the day as pt had poor PO. Patient does not like ONS Nepro. Spoke with Dr. Rivera and he wants continuous tube feedings for the patient at this time. Discussed recommendations with him. FNS received consult for "lost 70# x 1 year bedbound, TF, decubitus ulcer" on 01/08. Per RN FLOAT eval (01/08), 'MS diet w/ chopped meat and veggie with thin liquid'. Patient is NPO currently for EGD. Problem with: N/V/D/C: none, but patient had blood in stools Problems with: Chewing/Swallowing: yes Current appetite: poor Recent wt change: none %wt change: N/A Vitamin/Supplement use: none Special diet at home: nocturnal tube feedings and regular diet at home. Physical activity: n/a Nutrition education given: not possible at this time d/t patient condition. Food-drug interactions: lipitor- avoid grapefruit Education given: no Estimated Nutritional Needs Based on current body weight 84.8 kg Energy: 8508-1460 kcal/d (30-35 kcal/kg) Protein: 102-127 g/d (1.2-1.5 g/kg) - HD, pressure ulcer Fluid: 6348-1779 ml/d (1 ml/kcal) or per doctor Nutrition Diagnosis 1. Increased nutrient needs related to altered skin integrity, increased metabolic demands as evidenced by pt on HD, pressure ulcer. Intervention 1. Recommend Nepro 1.8 @ 10 ml/hr, goal 60 ml/hr, advance 10 ml Q6H, FWF 50 ml Q6H ( FWF per MD). This will provide 2590 kcal and 116g protein. Goal rate will meet 100% of calorie and protein needs. Discussed recommendations with Dr. Rivera. Monitor/Evaluate Goal: PO intake at least 75% of estimated needs Monitor: TF intake/ toleration, Labs, GI function F/U in 2-3 days as high risk
[2019-01-10 11:50] VITALS: BP 110/47
--- NOTE | 2019-01-10 12:01 | NUR ---
DR. RIOJAS, DR. VELÁZQUEZ, MYSELF AND PT'S ADAIR IN QUIET ROOM TO DISCUSS PT'S CURRENT CONDITION AND PLAN OF CARE. PT'S INFORMED OF PT'S REFUSAL OF TREATMENT THIS MORNING AND OF POOR PROGNOSIS. PT'S ADAIR STATED SHE IS AWARE THAT PT'S BODY IS TIRED AND STATED "CAN WE JUST STOP PLEASE? I ALREADY SPOKE TO HIS BROTHERS AND SISTERS AND THEY SAID I CAN MAKE THE DECISION". PT NOW A DNR-PALLATIVE CARE. PT'S IN AGREEMENT WITH PLAN OF CARE. PRIMARY RN AWARE OF THE ABOVE. PT'S AT BEDSIDE.
--- NOTE | 2019-01-10 14:02 | NUR ---
PT HAD BM AND CLEANED AT THIS TIME. NOTED LARGE AMOUNT OF BLOOD WITH CLOTS. PT CLEANED AND REPOSITIONED AT THIS TIME. PT FAMILY PRESENT AT BEDSIDE.
--- NOTE | 2019-01-10 14:26 | NUR ---
MORPHINE DRIP INITIATED AT THIS TIME PER MD ORDER. IV DRIP INFUSING AT 5MG/HR. WILL CONT TO MONITOR
--- NOTE | 2019-01-10 15:10 | NUR ---
PTS HR 130, MORPHINE DRIP INCREASED TO 7MG/HR. WILL CONT TO MONITOR
[2019-01-10 15:46] VITALS: BP 78/48
--- NOTE | 2019-01-10 19:11 | NUR ---
REPORT GIVEN TO DAY HABILITATION SPECIALIST RN AND RELAY DISPATCHER. ALL QUESTIONS AND CONCERNS ADDRESSED. MORPHINE DRIP INFUSING AT THIS TIME PER PROTOCOL.
[2019-01-10 19:30] VITALS: BP 73/33
--- NOTE | 2019-01-10 19:30 | NUR ---
RECEIVED PT LAYING IN BED. PT IS LETHARGIC AT THIS TIME. DOES NOT FOLLOW SIMPLE COMMANDS. RESPONDS TO PAINFUL STIMULI. PUPILS WITH SLUGGISH RESPONSE TO LIGHT, 2 MM BILAT. PT ON MORPHINE GTT @ 7 MG/HR, PALLIATIVE CARE. EENT FREE OF DISCHARGE. ORAL MUCOSA COATED. BREATHING IS E/U ON RA. LUNGS SOUND CLEAR TO BUL AND DIMIN TO BLL. SYMMETRICAL CHEST EXPANSION NOTED. S1/S2 HEART SOUNDS AUSCULTATED. CHEST WALL EQUAL AND SYMMETRICAL. NO S/S OF CP NOTED. PACEMAKER NOTED TO LEFT UPPER CHEST. HR 97, BP 73/33 MAP 45. WEAK PULSES X3 EXTREMITIES. SKIN IS WARM AND DRY. +1 PITTIN EDEMA NOTED TO RLE. LH AND RAC IV IN PLACE WITH NO S/S OF INFILTRATION NOTED. GENERALIZED WEAKNESS. PT ON BEDREST. LLE BKA NOTED. HEEL PROTECTOR IN PLACE TO RLE. PT IS NPO. ABD IS SOFT, ROUND, NONTENDER TO PALPATION. BOWEL SOUNDS ACITVE X4 QUADRANTS. NO BM NOTED. PEG NOTED WITH DRESSING CDI. DIALYSIS PORT NOTED TO RIGHT UPPER CHEST WITH DRESSING CDI. PT IS ANURIC. NO SCROTAL EDEMA NOTED. ERYTHEMA NOTED TO COCCYX AREA, OPTIFOAM IN PLACE. SCABS NOTED TO BUE. ULCER NOTED TO RIGHT HEEL WITH DRESSING AND FLEX BOOT IN PLACE. DISCOLORATION NOTED TO DIGITS OF RIGHT FOOT. PT ON TURN SCHED Q2H AND PRN FOR COMFORT. FAMILY AT BEDSIDE. BED IN LOW POSITION. CALL LIGHT IN REACH. WILL CONT TO MONITOR
[2019-01-10 23:11] VITALS: BP 86/31
--- NOTE | 2019-01-10 23:40 | NUR ---
PT IS SLEEPING, REMAINS ON MORPHINE GTT @ 7 MG/HR. BREATHING IS E/U ON RA, PT'S O2 SATURATION 98%. NO S/S OF PAIN NOTED. AT BEDSIDE. WILL CONT TO MONITOR.
--- NOTE | 2019-01-11 00:25 | NUR ---
DR. FERRERA AT BEDSIDE, UPDATED ON PT'S STATUS. MADE AWARE PT IS ON PALLIATIVE CARE. NO NEW ORDERS.
--- NOTE | 2019-01-11 02:48 | NUR ---
NIBP AND SPO2 NOT READING AT THIS TIME. PULSE PALPABLE TO TOUCH. PT REMAINS PACED, HR 60. WILL CONT TO MONITOR.
--- NOTE | 2019-01-11 03:00 | NUR ---
SWAGING MACHINE OPERATOR READING ASYSTOLE. NO PULSES PALPABLE. DR. ADAIR MADE AWARE.
--- NOTE | 2019-01-11 03:15 | NUR ---
DR. BLACKBURN AT BEDSIDE TO ASSESS THE PT. PER DR. BLACKBURN, TIME OF : 03:15. AT BEDSIDE.
--- NOTE | 2019-01-11 03:20 | NUR ---
CALLED [facility] OFFICE. PROVIDED WITH PT INFORMATION. AWAITING CALL BACK
--- NOTE | 2019-01-11 03:40 | NUR ---
NOTIFIED [facility] REGARDING OF THE PT. PER [facility] REP CARROL, PT QUALIFIES FOR TISSUE AND EYE DONATION. WILL FOLLOW UP WITH THE BODY LOCATION WITHIN AN HOUR. [facility]
--- NOTE | 2019-01-11 03:50 | NUR ---
NOTIFIED [facility] CORONER OF THE PT'S . SPOKE TO DEPUTY REBOLLEDO VIA TELEPHONE. PER DEPUTY REBOLLEDO, AQUARI[facility] SPECIALIST RELEASES THE BODY TO THE [facility]. CORNER .
== END 2019-01-11 04:30 | disposition expired | DRG 871 ==
LOC: ED 15:17 → IC 18:56
PROVIDERS: Emergency Medicine; Internal Medicine; Internal Medicine Gastroenterology; Internal Medicine Nephrology; ADMIT General Practice
PROC: 5A1D70Z Performance of Urinary Filtration, Intermittent, Less than 6 Hours Per Day (ICD-10-PCS; principal; 2019-01-09)
PROC: 0DJ08ZZ Inspection of Upper Intestinal Tract, Via Natural or Artificial Opening Endoscopic (ICD-10-PCS; 2019-01-10 10:00)
DX: A41.9 Sepsis, unspecified organism (principal); N18.6 End stage renal disease; G93.41 Metabolic encephalopathy; N17.0 Acute kidney failure with tubular necrosis; E43 Unspecified severe protein-calorie malnutrition; I21.A1 Myocardial infarction type 2; R65.21 Severe sepsis with septic shock; J18.1 Lobar pneumonia, unspecified organism; E87.1 Hypo-osmolality and hyponatremia; T82.111A Breakdown (mechanical) of cardiac pulse generator (battery), initial encounter; R18.8 Other ascites; I13.2 Hypertensive heart and chronic kidney disease with heart failure and with stage 5 chronic kidney disease, or end stage renal disease; I50.22 Chronic systolic (congestive) heart failure; K92.2 Gastrointestinal hemorrhage, unspecified; A04.72 Enterocolitis due to Clostridium difficile, not specified as recurrent; J91.8 Pleural effusion in other conditions classified elsewhere; E11.22 Type 2 diabetes mellitus with diabetic chronic kidney disease; E86.0 Dehydration; Y83.8 Other surgical procedures as the cause of abnormal reaction of the patient, or of later complication, without mention of misadventure at the time of the procedure; E11.51 Type 2 diabetes mellitus with diabetic peripheral angiopathy without gangrene; L89.151 Pressure ulcer of sacral region, stage 1; E11.21 Type 2 diabetes mellitus with diabetic nephropathy; I46.9 Cardiac arrest, cause unspecified; I25.5 Ischemic cardiomyopathy; L89.311 Pressure ulcer of right buttock, stage 1; Z66 Do not resuscitate; Z51.5 Encounter for palliative care; L89.612 Pressure ulcer of right heel, stage 2; L89.321 Pressure ulcer of left buttock, stage 1; Y95 Nosocomial condition; I25.10 Atherosclerotic heart disease of native coronary artery without angina pectoris; D63.1 Anemia in chronic kidney disease; Z93.1 Gastrostomy status; Z95.0 Presence of cardiac pacemaker; Z79.4 Long term (current) use of insulin; Z79.82 Long term (current) use of aspirin; Z68.24 Body mass index [BMI] 24.0-24.9, adult; Z95.1 Presence of aortocoronary bypass graft; Z89.512 Acquired absence of left leg below knee; Z95.5 Presence of coronary angioplasty implant and graft; Z88.0 Allergy status to penicillin; Z99.2 Dependence on renal dialysis; Z88.8 Allergy status to other drugs, medicaments and biological substances; Y92.89 Other specified places as the place of occurrence of the external cause; Z87.891 Personal history of nicotine dependence; Z80.9 Family history of malignant neoplasm, unspecified
CPT/HCPCS: 43235; 43760; 82962; 83880; 84439; 87046; 87046-59; 92526-GN; 92610-GN; A4719; C9113; G0378; G0480; J0171; J0696; J1200; J1610; J1644; J1956; J2250; J2270; J2310; J2405; J3010; J3370; J3490; J7030; J7040; J7050; J7060; J7620; P9047; Q0092